=== PATIENT | male | born 1935 | race Caucasian/White ===

== ENCOUNTER → 2016-06-09 | Outpatient (CLI) | payer MEDICARE, BC ==
[~2016-06-09] MED LIST: ATOR20TA42 PO; DIOV320T3 PO; OMEP20TA PO; TAMS0.4C67 PO
[2016-06-09 13:19] LABS: BLOOD, URINE NEG (NEG); COMMENT (UR) CULT NOT INDICATED; CULTURE IF INDICATED CULT NOT INDICATED; GLUCOSE,URINE NEG (NEG); KETONE, URINE NEG (NEG); NITRITE,URINE NEG (NEG); PH, URINE 6.5 (5.0-8.5); URINE COLOR YELLOW (YELLW/STRAW)
[2016-06-09 13:21] LABS: AUTOMATED NEUTROPHIL # 2.2 TH/MM3 (1.8-7.7); BASOPHIL % 0.9 % (0.0-2.0); EOSINOPHIL # 0.1 TH/MM3 (0-0.4); EOSINOPHIL % 3.6 % (0.0-4.0); HEMATOCRIT 45.3 % (39.0-51.0); HEMO FLAGS DIFF FINAL; LYMPH % 16.4 % (9.0-44.0); LYMPHOCYTE # 0.5 TH/MM3 (1.0-4.8); MEAN CELL VOLUME 94.9 FL (80.0-100.0); MEAN CORPUSCULAR HEMOGLOBIN 32.5 PG (27.0-34.0); MEAN CORPUSCULAR HGB CONC 34.3 % (32.0-36.0); MONO % 8.7 % (0.0-8.0); NEUT % 70.4 % (16.0-70.0); PLATELET COUNT 169 TH/MM3 (150-450); RED BLOOD COUNT 4.77 MIL/MM3 (4.50-5.90); RED CELL DISTRIBUTION WIDTH 12.9 % (11.6-17.2); WHITE BLOOD COUNT 3.2 TH/MM3 (4.0-11.0)
[2016-06-09 14:04] LABS: ALKALINE PHOSPHATASE 57 U/L (45-117); ALT (GPT) 27 U/L (12-78); ANION GAP 5 MEQ/L (5-15); AST (GOT) 17 U/L (15-37); BICARBONATE 31.1 MEQ/L (21.0-32.0); BLOOD UREA NITROGEN 18 MG/DL (7-18); CHLORIDE 106 MEQ/L (98-107); FREE T3 2.73 PG/ML (2.18-3.98); FREE T4 0.84 NG/DL (0.76-1.46); GLOMERULAR FILTRATION RATE 58 ML/MIN (>89); GLUCOSE,FASTING 110 MG/DL (74-99); HDL CHOLESTEROL 60.5 MG/DL (40.0-60.0); LDL CHOLESTEROL 111 MG/DL (0-99); POTASSIUM 4.6 MEQ/L (3.5-5.1); SODIUM (NA) 142 MEQ/L (136-145); TOTAL BILIRUBIN ADULT 0.5 MG/DL (0.2-1.0)
[2016-06-10 05:27] LABS: FREE PSA/PSA RATIO 0.33 ratio (())
== END ==
LOC: PLAB 08:12
PROVIDERS: ATTEND Urology
DX: E78.5 Hyperlipidemia, unspecified (principal); R97.20 Elevated prostate specific antigen [PSA]; E29.1 Testicular hypofunction; Z79.899 Other long term (current) drug therapy; Z12.5 Encounter for screening for malignant neoplasm of prostate; Z12.11 Encounter for screening for malignant neoplasm of colon
CPT/HCPCS: 36415; 80053; 80061; 81001; 82607; 84153; 84154; 84403; 84439; 84443; 84481; 85025

== ENCOUNTER 2016-12-10 07:31 | Emergency (ER) | payer MEDICARE, BC ==
[~2016-12-10] VITALS: Ht 177.8 cm; Wt 95.0 kg
[2016-12-10 07:34] VITALS: BP 147/60; PULSE 72; RESP 18; TEMP 98.9
[2016-12-10] MEDS ORDERED: TEST1GEL15 TOPICAL (07:51)
[2016-12-10] MEDS ORDERED: PRIM50TA5 PO (07:51)
[2016-12-10] MEDS ORDERED: TAMS0.4C4 PO (07:51)
[2016-12-10] MEDS ORDERED: SODIUM CHLOR 0.9% 1000 ML INJ 1,000 ML IV ONE (07:51)
[2016-12-10 07:57] VITALS: BP 147/63; PULSE 66; RESP 12; TEMP 97.7; O2SAT 98
--- NOTE | 2016-12-10 07:59 | PD ---
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) Cardiovascular Problems: Yes (MURMUR) High Cholesterol: Yes Chemotherapy: No Chest Pain: No Congestive Heart Failure: No COPD: No Diabetes: No Diminished Hearing: Yes (BILATERAL HEARING AIDS) Endocrine: No Gastrointestinal Disorders: Yes (GERD) GERD: Yes Genitourinary: Yes (BPH) Hepatitis: No Hiatal Hernia: Yes Hypertension: Yes Immune Disorder: No Musculoskeletal: Yes (BACK PAIN) Neurologic: No Psychiatric: No Reproductive: No Respiratory: No Radiation Therapy: No Sleep Apnea: No Thyroid Disease: No Tetanus Vaccination: > 5 Years Influenza Vaccination: Yes ?: Not Past Surgical History AICD: No Genitourinary Surgery: Yes (VARICOCELECTOMY) Joint Replacement: No Pacemaker: No Other Surgery: Yes (HYDROCEAL) Social History Alcohol Use: Yes (1-2 WINE, 3-4 TIMES PER WEEK) Tobacco Use: No Substance Use: No Allergies-Medications (Allergen,Severity, Reaction): Coded Allergies: No Known Allergies (Verified , 12/10/16) Reported Meds & Prescriptions Reported Meds & Active Scripts Active Reported Testosterone Topical (Testosterone) 25 Mg/2.5 Gram (1 %) Gel 50 Mg TOPICAL DAILY Primidone 50 Mg Tab 50 Mg PO BID Tamsulosin (Tamsulosin HCl) 0.4 Mg Cap 0.4 Mg PO BID Physical Exam Narrative GENERAL: SKIN: Warm and dry. HEAD: Atraumatic. Normocephalic. EYES: Pupils equal and round. No scleral icterus. No injection or drainage. ENT: No nasal bleeding or discharge. Mucous membranes pink and moist. NECK: Trachea midline. No JVD. CARDIOVASCULAR: Regular rate and rhythm. RESPIRATORY: No accessory muscle use. Clear to auscultation. Breath sounds equal bilaterally. GASTROINTESTINAL: Abdomen soft, non-tender, nondistended. Hepatic and splenic margins not palpable. MUSCULOSKELETAL: Extremities without clubbing, cyanosis, or edema. No obvious deformities. NEUROLOGICAL: Awake and alert. No obvious cranial nerve deficits. Motor grossly within normal limits. Five out of 5 muscle strength in the arms and legs. Normal speech. PSYCHIATRIC: Appropriate mood and affect; insight and judgment normal. Data Data Last Documented VS Vital Signs Date Time Temp Pulse Resp B/P (MAP) Pulse Ox O2 Delivery O2 Flow Rate FiO2 12/10/16 07:57 97.7 66 12 147/63 (91) 98 Room Air Orders Orders Complete Blood Count With Diff (12/10/16 07:51) Comprehensive Metabolic Panel (12/10/16 07:51) Urinalysis - C+S If Indicated (12/10/16 07:51) Ct Abd/Pel W/O Iv Contrast (12/10/16 07:51) Ecg Monitoring (12/10/16 07:51) Iv Access Insert/Monitor (12/10/16 07:51) Ondansetron Inj (Zofran Inj) (12/10/16 08:00) Sodium Chlor 0.9% 1000 Ml Inj (Ns 1000 M (12/10/16 07:51) Hydromorphone Pf Inj (Dilaudid Pf Inj) (12/10/16 08:00) Labs Laboratory Tests Test 12/10/16 08:00 White Blood Count 4.8 TH/MM3 Red Blood Count 4.69 MIL/MM3 Hemoglobin 15.7 GM/DL Hematocrit 45.3 % Mean Corpuscular Volume 96.5 FL Mean Corpuscular Hemoglobin 33.5 PG Mean Corpuscular Hemoglobin Concent 34.7 % Red Cell Distribution Width 13.0 % Platelet Count 162 TH/MM3 Mean Platelet Volume 7.4 FL Neutrophils (%) (Auto) 68.2 % Lymphocytes (%) (Auto) 10.7 % Monocytes (%) (Auto) 12.9 % Eosinophils (%) (Auto) 3.8 % Basophils (%) (Auto) 4.4 % Neutrophils # (Auto) 3.3 TH/MM3 Lymphocytes # (Auto) 0.5 TH/MM3 Monocytes # (Auto) 0.6 TH/MM3 Eosinophils # (Auto) 0.2 TH/MM3 Basophils # (Auto) 0.2 TH/MM3 CBC Comment DIFF FINAL Differential Comment Urine Color YELLOW Urine Turbidity HAZY Urine pH 6.0 Urine Specific Gore 1.021 Urine Protein NEG mg/dL Urine Glucose (UA) NEG mg/dL Urine Ketones NEG mg/dL Urine Occult Blood NEG Urine Nitrite NEG Urine Bilirubin NEG Urine Urobilinogen 2.0 MG/DL Urine Leukocyte Esterase SMALL Urine RBC 1 /hpf Urine WBC 3 /hpf Urine Squamous Epithelial Cells <1 /hpf Urine Calcium Oxalate Crystals FEW /hpf Urine Bacteria RARE /hpf Urine Hyaline Casts 1 /lpf Urine Granular Casts 1 /lpf Urine Mucus FEW /lpf Microscopic Urinalysis Comment CULT NOT INDICATED Blood Urea Nitrogen 19 MG/DL Creatinine 1.29 MG/DL Random Glucose 98 MG/DL Total Protein 6.7 GM/DL Albumin 3.9 GM/DL Calcium Level 9.0 MG/DL Alkaline Phosphatase 62 U/L Aspartate Amino Transf (AST/SGOT) 11 U/L Alanine Aminotransferase (ALT/SGPT) 24 U/L Total Bilirubin 0.7 MG/DL Sodium Level 139 MEQ/L Potassium Level 4.4 MEQ/L Chloride Level 103 MEQ/L Carbon Dioxide Level 29.9 MEQ/L Anion Gap 6 MEQ/L Estimat Glomerular Filtration Rate 54 ML/MIN [facility] Medical Decision Making Medical Screen Exam Complete: Yes Emergency Medical Condition: Yes Medical Record Reviewed: Yes Differential Diagnosis KIDNEY STONES V AAA V KIDNEY ABSCESS Narrative Course CT SHOWS KIDNEY STONES, ALSO DISCUSSED FINDINGS OF ?LESIONS TO BOTH KIDNEYS WELL Diagnosis Primary Impression: ACUTE NEPHROLITHIASIS Patient Instructions: General Instructions, Kidney Stones (ED) Scripts Ondansetron Odt (Zofran Odt) 4 Mg Tab 4 MG SL Q8HR Y for Nausea/Vomiting, #20 TAB 0 Refills Prov: Fabricio Renee MD 12/10/16 Oxycodone-Acetaminophen (Percocet) 5-325 mg Tab 1 TAB PO Q6H Y for PAIN, #12 TAB 0 Refills Prov: Fabricio Renee MD 12/10/[address] (Naproxen EC) 375 Mg Tabdr 375 MG PO BID, #20 TAB 0 Refills Prov: Fabricio Renee MD 12/10/16 Disposition: 01 DISCHARGE HOME Condition: Stable Fabricio Renee MD Dec 10, 2016 07:59
[2016-12-10] MEDS ORDERED: HYDROmorphone HCL PF 1 MG/ML VIAL IM ONE (08:00)
[2016-12-10] MEDS ORDERED: ONDANSETRON HCL 4 MG/2 ML VIAL IVP ONE (08:00)
[2016-12-10 08:27] LABS: AUTOMATED NEUTROPHIL # 3.3 TH/MM3 (1.8-7.7); BASOPHIL # 0.2 TH/MM3 (0-0.2); BASOPHIL % 4.4 % (0.0-2.0); EOSINOPHIL # 0.2 TH/MM3 (0-0.4); EOSINOPHIL % 3.8 % (0.0-4.0); HEMATOCRIT 45.3 % (39.0-51.0); HEMO FLAGS DIFF FINAL; LYMPH % 10.7 % (9.0-44.0); LYMPHOCYTE # 0.5 TH/MM3 (1.0-4.8); MEAN CELL VOLUME 96.5 FL (80.0-100.0); MEAN CORPUSCULAR HEMOGLOBIN 33.5 PG (27.0-34.0); MEAN CORPUSCULAR HGB CONC 34.7 % (32.0-36.0); MONO % 12.9 % (0.0-8.0); NEUT % 68.2 % (16.0-70.0); PLATELET COUNT 162 TH/MM3 (150-450); RED BLOOD COUNT 4.69 MIL/MM3 (4.50-5.90); WHITE BLOOD COUNT 4.8 TH/MM3 (4.0-11.0)
[2016-12-10 08:31] LABS: BACTERIA, URINE RARE /hpf; BLOOD, URINE NEG (NEG); CALCIUM OXALATE CRYSTALS,URINE FEW /hpf; GLUCOSE,URINE NEG (NEG); GRANULAR CAST, URINE 1 /lpf; HYALINE CAST, URINE 1 /lpf (RARE); KETONE, URINE NEG (NEG); MUCUS URINE FEW /lpf (OCC); NITRITE,URINE NEG (NEG); SQUAMOUS EPITHELIAL CELL URINE <1 /hpf (0-5); URINE COLOR YELLOW (YELLW/STRAW)
[2016-12-10 08:33] LABS: COMMENT (UR) CULT NOT INDICATED; CULTURE IF INDICATED CULT NOT INDICATED
--- NOTE | 2016-12-10 08:39 | RADRPT ---
EXAM DATE/TIME: 12/10/2016 08:18 [place] COMPARISON: No previous studies available for comparison. INDICATIONS : Right flank pain for one day ORAL CONTRAST: No oral contrast ingested. RADIATION DOSE: 27.56 CTDIvol (mGy) MEDICAL HISTORY : Hypertension. Benign prostatic hyperplasia (BPH). Skin cancer, heart murmur. SURGICAL HISTORY : Varicocelectomy ENCOUNTER: Initial ACUITY: 1 day PAIN SCALE: 6/10 LOCATION: Right flank TECHNIQUE: Volumetric scanning of the abdomen and pelvis was performed. Using automated exposure control and ad justment of the mA and/or kV according to patient size, radiation dose was kept as low as reasonably achievable to obtain optimal diagnostic quality images. DICOM format image data is available electro nically for review and comparison. FINDINGS: LOWER LUNGS: The visualized lower lungs are clear. LIVER: Scattered granulomatous calcifications. 2 small cysts observed. The largest involves segment 3 measur ing 1.9 cm. A limits R3. Gallbladder is unremarkable. No ductal dilatation. SPLEEN: Normal size without lesion. Granulomatous calcifications. PANCREAS: Within normal limits. KIDNEYS: Multiple lesions are seen scattered throughout the kidneys. These very in density. The largest lesion is exophytic from the upper pole the right kidney measuring 3.2 cm in diameter. Hounsfield units are 13. A 1.8 cm cortical lesion involving the lateral right kidney at the mid to lower pole junction butler s Hounsfield units 21. Multiple lesions scattered throughout the left kidney as well. A 4 mm nonobstr ucting stones seen involving the lower pole the right kidney. No stones on the left. No ureteral ston es or hydronephrosis/hydroureter. ADRENAL GLANDS: Within normal limits. VASCULAR: There is no aortic aneurysm. BOWEL/MESENTERY: The stomach, small bowel, and colon demonstrate no acute abnormality. There is no free intraperitone al air or fluid. Scattered colonic diverticuli. No acute inflammation. ABDOMINAL WALL: Within normal limits. RETROPERITONEUM: There is no lymphadenopathy. BLADDER: No wall thickening or mass. It is not stented. REPRODUCTIVE: The prostate gland is enlarged with multiple peripheral calcifications. This impresses upon the shawn ne of the urinary bladder. INGUINAL: There is no lymphadenopathy or hernia. MUSCULOSKELETAL: Within normal limits for patient age. CONCLUSION: 1. No acute abnormality. 2. 4 mm nonobstructing right renal stone. 3. Multiple lesions scattered throughout both kidneys which are poorly characterize on this unenhance d study. Some are not consistent with simple cysts. These could relate to complex cyst. I cannot excl ude solid lesions. Consider an outpatient followup ultrasound of the kidneys. 4. Hepatic cysts. 5. Enlarged prostate gland. 6. Diverticulosis of the colon without acute inflammation. Jonathan De Souza Jr., MD on December 10, 2016 at 8:32 Board Certified Radiologist. This report was verified electronically.
[2016-12-10 08:40] LABS: ALT (GPT) 24 U/L (12-78); ANION GAP 6 MEQ/L (5-15); AST (GOT) 11 U/L (15-37); BICARBONATE 29.9 MEQ/L (21.0-32.0); BLOOD UREA NITROGEN 19 MG/DL (7-18); CHLORIDE 103 MEQ/L (98-107); GLOMERULAR FILTRATION RATE 54 ML/MIN (>89); POTASSIUM 4.4 MEQ/L (3.5-5.1); SODIUM (NA) 139 MEQ/L (136-145)
[2016-12-10 08:43] LABS: ALKALINE PHOSPHATASE 62 U/L (45-117); TOTAL BILIRUBIN ADULT 0.7 MG/DL (0.2-1.0)
[2016-12-10] MEDS ORDERED: ZOFR4TAB3 SL (09:49)
[2016-12-10] MEDS ORDERED: NAPR-239 PO (09:49)
[2016-12-10] MEDS ORDERED: PERC5TAB12 PO (09:49)
== END 2016-12-10 10:34 | disposition home or self-care (01) ==
LOC: NEPE 07:31
DX: N20.0 Calculus of kidney (principal); I10 Essential (primary) hypertension; E78.00 Pure hypercholesterolemia, unspecified; H91.90 Unspecified hearing loss, unspecified ear; Z85.828 Personal history of other malignant neoplasm of skin; Z86.79 Personal history of other diseases of the circulatory system; Z87.19 Personal history of other diseases of the digestive system; Z87.438 Personal history of other diseases of male genital organs; Z87.39 Personal history of other diseases of the musculoskeletal system and connective tissue
CPT/HCPCS: 74176; 80053; 81001; 85025; 96360; 99285; J7030

== ENCOUNTER → 2017-05-09 | Outpatient (CLI) | payer MEDICARE, BC ==
[~2017-05-09] MED LIST changes: -ATOR20TA42 PO; -DIOV320T3 PO; +NAPR375T4 PO; -OMEP20TA PO; +PERC5TAB12 PO; +PRIM50TA5 PO; +TAMS0.4C4 PO; -TAMS0.4C67 PO; +TEST1GEL15 TOPICAL; +ZOFR4TAB3 SL
[2017-05-09 09:53] LABS: HEMOGLOBIN 16.5 GM/DL (13.0-17.0); MEAN CELL VOLUME 94.9 FL (80.0-100.0); MEAN CORPUSCULAR HEMOGLOBIN 33.3 PG (27.0-34.0); MEAN CORPUSCULAR HGB CONC 35.1 % (32.0-36.0); MEAN PLATELET VOLUME 7.1 FL (7.0-11.0); PLATELET COUNT 178 TH/MM3 (150-450); RED BLOOD COUNT 4.95 MIL/MM3 (4.50-5.90); RED CELL DISTRIBUTION WIDTH 12.9 % (11.6-17.2); WHITE BLOOD COUNT 3.9 TH/MM3 (4.0-11.0)
[2017-05-12 13:11] LABS: FREE TESTOSTERONE 5.23 ng/dL (3.08-11.3)
== END ==
LOC: PLAB 08:20
PROVIDERS: ATTEND Urology
DX: R97.20 Elevated prostate specific antigen [PSA] (principal); E29.1 Testicular hypofunction
CPT/HCPCS: 36415; 82670; 84153; 84403; 84410; 85027

== ENCOUNTER → 2017-05-18 | Outpatient (CLI) | payer MEDICARE, BC ==
[2017-05-20 06:00] LABS: FREE PSA/PSA RATIO 0.24 ratio; PSA, FREE 1.2 ng/mL
== END ==
LOC: PLAB 14:47
PROVIDERS: ATTEND Urology
DX: R97.20 Elevated prostate specific antigen [PSA] (principal)
CPT/HCPCS: 36415; 84153; 84154

== ENCOUNTER → 2017-06-23 | Outpatient (CLI) | payer MEDICARE, BC ==
[2017-06-23 10:44] LABS: ALBUMIN 4.2 GM/DL (3.4-5.0); AST (GOT) 21 U/L (15-37); BICARBONATE 27.3 MEQ/L (21.0-32.0); BLOOD UREA NITROGEN 17 MG/DL (7-18); CALCIUM 9.4 MG/DL (8.5-10.1); CHLORIDE 105 MEQ/L (98-107); CHOLESTEROL 241 MG/DL (120-200); CREATININE 1.05 MG/DL (0.60-1.30); GLOMERULAR FILTRATION RATE 68 ML/MIN (>89); GLUCOSE,FASTING 101 MG/DL (74-99); SODIUM (NA) 141 MEQ/L (136-145); TRIGLYCERIDES 97 MG/DL (42-150)
[2017-06-23 10:46] LABS: AUTOMATED NEUTROPHIL # 2.2 TH/MM3 (1.8-7.7); BASOPHIL % 0.9 % (0.0-2.0); EOSINOPHIL # 0.1 TH/MM3 (0-0.4); EOSINOPHIL % 4.3 % (0.0-4.0); HEMOGLOBIN 15.6 GM/DL (13.0-17.0); LYMPH % 19.9 % (9.0-44.0); LYMPHOCYTE # 0.6 TH/MM3 (1.0-4.8); MEAN CELL VOLUME 94.7 FL (80.0-100.0); MEAN CORPUSCULAR HEMOGLOBIN 32.8 PG (27.0-34.0); MEAN CORPUSCULAR HGB CONC 34.7 % (32.0-36.0); MONO % 8.3 % (0.0-8.0); MONOCYTE # 0.3 TH/MM3 (0-0.9); NEUT % 66.6 % (16.0-70.0); PLATELET COUNT 191 TH/MM3 (150-450); RED BLOOD COUNT 4.75 MIL/MM3 (4.50-5.90); WHITE BLOOD COUNT 3.2 TH/MM3 (4.0-11.0)
[2017-06-23 10:49] LABS: BILIRUBIN, URINE NEG (NEG); BLOOD, URINE NEG (NEG); GLUCOSE,URINE NEG (NEG); KETONE, URINE NEG (NEG); NITRITE,URINE NEG (NEG); SQUAMOUS EPITHELIAL CELL URINE <1 /hpf (0-5); URINE COLOR YELLOW (YELLW/STRAW); URINE LEUKOCYTE ESTERASE NEG (NEG)
[2017-06-23 11:10] LABS: ALKALINE PHOSPHATASE 61 U/L (45-117); ALT (GPT) 39 U/L (12-78); CHOLESTEROL/ HDL RATIO 3.61 RATIO; FREE T4 0.72 NG/DL (0.76-1.46); HDL CHOLESTEROL 66.6 MG/DL (40.0-60.0); LDL CHOLESTEROL 155 MG/DL (0-99); TOTAL BILIRUBIN ADULT 0.3 MG/DL (0.2-1.0); TOTAL PROTEIN 6.9 GM/DL (6.4-8.2)
== END ==
LOC: PLAB 07:57
PROVIDERS: ATTEND Internal Medicine
DX: E29.1 Testicular hypofunction (principal); E78.5 Hyperlipidemia, unspecified; R53.83 Other fatigue; Z79.899 Other long term (current) drug therapy; Z12.11 Encounter for screening for malignant neoplasm of colon; Z12.5 Encounter for screening for malignant neoplasm of prostate
CPT/HCPCS: 36415; 80053; 80061; 81001; 82607; 84403; 84439; 84443; 84481; 85025; G0103